=== PATIENT | female | born 1950 | race African-American/Black ===

== ENCOUNTER 2016-10-17 15:21 | Emergency (ER) | payer MEDICARE ==
[~2016-10-17] VITALS: Ht 165.1 cm; Wt 60.0 kg
[2016-10-17 15:23] VITALS: BP 225/106; PULSE 116; RESP 12; TEMP 98.1; O2SAT 98
[2016-10-17 15:29] VITALS: BP 180/103; PULSE 108; RESP 16
--- NOTE | 2016-10-17 15:31 | PD ---
Physical Exam Date Seen by Provider: Oct 17, 2016 Time Seen by Provider: 15:29 Narrative 66 YOBF C/O LBP WITH PAIN INTO HER L LEG. NO NUMBNESS CARRIZALES TINGLING. NO INJURY. NO ILLNESS VITALS NOTED Data Data Last Documented VS Vital Signs Date Time Temp Pulse Resp B/P Pulse Ox O2 Delivery O2 Flow Rate FiO2 10/17/16 15:23 98.1 116 12 225/106 98 MDM Medical Record Reviewed: Yes Supervised Visit with SELIN: Yes Faustino Johnson Oct 17, 2016 15:31
[2016-10-17] MEDS ORDERED: ASPI81CH7 CHEW (15:42)
[2016-10-17] MEDS ORDERED: NORC5TAB PO (15:42)
[2016-10-17] MEDS ORDERED: LISI10TA3 PO (15:42)
[2016-10-17] MEDS ORDERED: bp med PO (15:42)
[2016-10-17] MEDS ORDERED: ROBA500T PO (16:13)
--- NOTE | 2016-10-17 16:14 | PD ---
HPI Chief Complaint: Pain: Acute or Chronic Time Seen by Provider: 16:12 Travel History International Travel<30 days: No Contact w/Intl Traveler<30days: No Traveled to known affect area: No History of Present Illness HPI 66-year-old female presents to the emergency department requesting hydrocodone for her chronic low back pain with left-sided sciatica. She's had chronic low back pain for many years. She is here on vacation and ran out of her hydrocodone and [id number] medications don't work for her. She denies new or recent injury. Denies encopresis, incontinence, saddle anesthesias. Denies fever, chills, nausea, vomiting, abdominal pain. Denies dysuria, hematuria, urgency, frequency. She has no other medical complaints. No other modifying factors or associated signs and symptoms. PFSH Past Medical History Respiratory: Yes ?: Not Social History Tobacco Use: No Allergies-Medications Reported Meds & Prescriptions Reported Meds & Active Scripts Active Robaxin (Methocarbamol) 500 Mg Tab 500 Mg PO QID PRN Reported [bp med] Unknown Dose PO DAILY Aspirin [facility] (Aspirin) 81 Mg Chew 81 Mg CHEW DAILY [facility] (Hydrocodone-Acetaminophen) 5-325 mg Tab 1 Tab PO Q4H PRN Lisinopril 10 Mg Tab 10 Mg PO DAILY Review of Systems Except as stated in HPI: all other systems reviewed are Neg Physical Exam Narrative GENERAL: Well-nourished, well-developed elderly, female patient , in no acute distress; afebrile, nontoxic-appearing SKIN: Warm and dry. HEAD: Atraumatic. Normocephalic. EYES: Pupils equal and round. No scleral icterus. No injection or drainage. ENT: Mucosa pink and moist. Airway patent. NECK: Trachea midline. CARDIOVASCULAR: Regular rate. RESPIRATORY: No accessory muscle use. GASTROINTESTINAL: Flat. MUSCULOSKELETAL: Bilateral lower extremities supple and non-tense with 2+ pedal pulses and sensory intact; with full range of motion and 5/5 strength. Ambulatory in room with normal gait. Active dorsiflexion and extension of bilateral feet. Sitting up in bed at 90. No obvious deformities. No clubbing. No cyanosis. No edema. BACK: No midline point tenderness on palpation of the lumbar spine. Tenderness on palpation of left iliosacral area. No obvious deformities. NEUROLOGICAL: Awake and alert. Oriented 3. No obvious cranial nerve deficits. Motor grossly within normal limits. Normal speech. Moves all extremities. 5/5 strength to all extremities. Sensory intact. PSYCHIATRIC: Appropriate mood and affect; insight and judgment normal. Data Data Last Documented VS Vital Signs Date Time Temp Pulse Resp B/P Pulse Ox O2 Delivery O2 Flow Rate FiO2 10/17/16 15:29 108 16 180/103 10/17/16 15:23 98.1 98 Orders MDM Medical Decision Making Medical Screen Exam Complete: Yes Emergency Medical Condition: Yes Medical Record Reviewed: Yes Differential Diagnosis Chronic low back pain, sciatica, acute exacerbation of chronic low back pain, narcotic seeking, medication refill Narrative Course 66-year-old female requesting refill on hydrocodone for her chronic low back pain with left-sided sciatica that she's had for many years. Denies any recent injury. Denies encopresis, incontinence, saddle anesthesias. Patient is ambulatory in the room with a normal gait. She is here on vacation and ran out of her medication while she was here. She goes home tomorrow. I offered the patient a no narcotic and muscle relaxant while in the ER and she declined. She continued to request a narcotic for pain. The patient says she will take a prescription for a muscle relaxer. Robaxin prescribed for home. Patient verbalizes understanding and agreement with treatment plan. Patient is medically cleared and stable for discharge. Discussed reasons to return to the emergency department. Instructed patient to follow up with primary care provider. Patient agrees with treatment plan. The patients vital signs are stable and the patient is stable for outpatient follow-up and treatment. Patient discharged home, stable and in no acute distress. Diagnosis Primary Impression: Chronic low back pain with left-sided sciatica Qualified Code: M54.42 - Chronic left-sided low back pain with left-sided sciatica Referrals: Primary Care Physician Patient Instructions: Acute Low Back Pain (ED), General Instructions, Sciatica (ED) Additional Instructions: Tylenol as directed and as needed for pain Robaxin as prescribed and as needed for muscle spasms Heating pad and/or ice to affected area to reduce pain Avoid aggravating activities; increase activity as tolerated Follow-up with primary care provider Return to emergency department immediately with worsening of symptoms Med/Other Pt SpecificInfo: Prescription(s) given Scripts Methocarbamol (Robaxin)500 Mg Moc725 Mg PO QID PRN (MUSCLE SPASM) #30 TAB Ref 0 Prov:Malinda Rubalcava 10/17/16 Disposition: 01 DISCHARGE HOME Condition: Stable Malinda Rubalcava Oct 17, 2016 16:14
[2016-10-17 16:15] VITALS: BP 185/92; PULSE 98; RESP 18; O2SAT 97
== END 2016-10-17 16:23 | disposition home or self-care (01) ==
LOC: NETRI 15:21
DX: M54.42 Lumbago with sciatica, left side (principal)
CPT/HCPCS: 99283